=== PATIENT | female | born 1995 | race American Indian/Alaskan Native ===

== ENCOUNTER 2018-09-12 01:06 | Emergency (ER) | payer SELFPAY ==
[2018-09-12 01:19] VITALS: BP 128/95
[2018-09-12] MEDS ORDERED: PEPCID ONE (01:19)
[2018-09-12] MEDS ORDERED: SOLU-Medrol ONE (01:19)
[2018-09-12] MEDS ORDERED: SOLU-Medrol IM ONE (01:20)
[2018-09-12] MEDS ORDERED: PEPCID PO ONE (01:20)
== END 2018-09-12 03:25 | disposition left against medical advice (07) ==
LOC: ED 01:06
DX: T78.40XA Allergy, unspecified, initial encounter (principal); Z53.21 Procedure and treatment not carried out due to patient leaving prior to being seen by health care provider
CPT/HCPCS: J2930